=== PATIENT | male | born 1990 | race African-American/Black ===

== ENCOUNTER 2017-07-30 11:15 | Emergency (ER) | payer SELFPAY ==
--- NOTE | 2017-07-30 12:55 | ER ---
Nurse's Notes [facility] Name: Latasha Crooks Jr Age: 27 yrs Sex: Male : 1990 Arrival Date: 07/30/2017 Time: 11:19 Bed 24 Private MD: Diagnosis: Low back pain Presentation: 07/30 11:25 Presenting complaint: Patient states: middle low back pain that started today, been hj doing a lot of heavy lifting lately;. Transition of care: patient was not received from another setting of care. Onset of symptoms was July 30, 2017. Care prior to arrival: None. 11:25 Method Of Arrival: Ambulatory hj 11:25 Acuity: AMARA 4 hj Triage Assessment: 11:27 General: Appears in no apparent distress. comfortable, Behavior is calm, cooperative, hj appropriate for age. Pain: Complains of pain in lumbar area. Musculoskeletal: Circulation, motion, and sensation intact. Capillary refill. Historical: - Allergies: 11: NKDA; hj - Home Meds: 11: None [Active]; hj - PMHx: 11: None; hj - PSHx: 11: None; hj Screenin:10 Abuse screen: Denies threats or abuse. Denies injuries from another. Nutritional sg screening: No deficits noted. Tuberculosis screening: No symptoms or risk factors identified. Never had TB. Fall Risk None identified. Vital Signs: 11: BP 122 / 93; Pulse 100; Resp 18; Temp 98.1(TE); Pulse Ox 100% on R/A; Weight 79.38 kg; hj Height 5 ft. 7 in. (170.18 cm); Pain 4/10; 11:27 Body Mass Index 27.41 (79.38 kg, 170.18 cm) ED Course: 11:19 Patient arrived in ED. mr 11:26 Triage completed. hj 11:27 Arm band placed on left wrist. hj 12:35 Kenzie Szymanski FNP-C is PHCP. snw 12:35 Be Alcantara MD is Attending Physician. snw 12:42 Jairo Berry RN is Primary Nurse. sg 13:00 Patient has correct armband on for positive identification. Bed in low position. Call sg light in reach. Pulse ox on. NIBP on. 13:30 No provider procedures requiring assistance completed. Patient did not have IV access sg during this emergency room visit. Administered Medications: 13:39 Drug: Flexeril 10 mg Route: PO; iw 13:39 Drug: Motrin 400 mg Route: PO; iw Outcome: 12:54 Discharge ordered by . sven 13:30 Discharged to home ambulatory. sg 13:30 Condition: good 13:30 Discharge instructions given to patient, Instructed on discharge instructions, follow up and referral plans. medication usage, safety practices, Demonstrated understanding of instructions, follow-up care, medications, Prescriptions given X 2. 13:39 Patient left the ED. iw Signatures: Jairo Berry, RN RN sg Kenzie Szymanski, MOTION PICTURE ACTOR-C MOTION PICTURE ACTOR-Csnw Emily Harvey mr Lizzy Corona, JUAN RN Igor Ornelas RN RN hj Corrections: (The following items were deleted from the chart) 11:29 11:27 Pulse 100bpm; Resp 18bpm; Pulse Ox 100% RA; Temp 98.1F Temporal; 79.38 kg; Height hj 5 ft. 7 in.; BMI: 27.4; Pain 4/10; hj
--- NOTE | 2017-07-30 12:55 | EDPHYS ---
Physician Documentation [facility] Name: Latasha Crooks Jr Age: 27 yrs Sex: Male : 1990 Arrival Date: 07/30/2017 Time: 11:19 Bed 24 Private MD: ED Physician Be Alcantara HPI: 07/30 17:19 This 27 yrs old Black Male presents to ER via Ambulatory with complaints of Back Pain. snw 17:19 The patient presents with pain and decreased range of motion, and tenderness. The snw symptoms are located in the low back, lumbar area and left low back. Onset: The symptoms/episode began/occurred suddenly, today. The pain does not radiate. Associated signs and symptoms: The patient has no apparent associated signs or symptoms. The problem was sustained when lifting heavy object, from twisting. Severity of symptoms: At their worst the symptoms were moderate. The patient has not experienced similar symptoms in the past. The patient has not recently seen a physician. Historical: - Allergies: 11: NKDA; hj - Home Meds: : None [Active]; - PMHx: : None; - PSHx: 11: None; hj ROS: 17:19 Constitutional: Negative for fever, chills, and weight loss, Eyes: Negative for injury, snw pain, redness, and discharge, ENT: Negative for injury, pain, and discharge, Neck: Negative for injury, pain, and swelling, Cardiovascular: Negative for chest pain, palpitations, and edema, Respiratory: Negative for shortness of breath, cough, wheezing, and pleuritic chest pain, Abdomen/GI: Negative for abdominal pain, nausea, vomiting, diarrhea, and constipation, : Negative for injury, bleeding, discharge, and swelling, MS/Extremity: Negative for injury and deformity, Skin: Negative for injury, rash, and discoloration, Neuro: Negative for headache, weakness, numbness, tingling, and seizure. 17:19 Back: Positive for injury or acute deformity, decreased range of motion, pain with movement. Exam: 17:19 Constitutional: This is a well developed, well nourished patient who is awake, alert, snw and in no acute distress. Head/Face: Normocephalic, atraumatic. Eyes: Pupils equal round and reactive to light, extra-ocular motions intact. Lids and lashes normal. Conjunctiva and sclera are non-icteric and not injected. Cornea within normal limits. Periorbital areas with no swelling, redness, or edema. ENT: Nares patent. No nasal discharge, no septal abnormalities noted. Tympanic membranes are normal and external auditory canals are clear. Oropharynx with no redness, swelling, or masses, exudates, or evidence of obstruction, uvula midline. Mucous membranes moist. Neck: Trachea midline, no thyromegaly or masses palpated, and no cervical lymphadenopathy. Supple, full range of motion without nuchal rigidity, or vertebral point tenderness. No Meningismus. Chest/axilla: Normal chest wall appearance and motion. Nontender with no deformity. No lesions are appreciated. Cardiovascular: Regular rate and rhythm with a normal S1 and S2. No gallops, murmurs, or rubs. Normal PMI, no JVD. No pulse deficits. Respiratory: Lungs have equal breath sounds bilaterally, clear to auscultation and percussion. No rales, rhonchi or wheezes noted. No increased work of breathing, no retractions or nasal flaring. Abdomen/GI: Soft, non-tender, with normal bowel sounds. No distension or tympany. No guarding or rebound. No evidence of tenderness throughout. Skin: Warm, dry with normal turgor. Normal color with no rashes, no lesions, and no evidence of cellulitis. MS/ Extremity: Pulses equal, no cyanosis. Neurovascular intact. Full, normal range of motion. Neuro: Awake and alert, GCS 15, oriented to person, place, time, and situation. Cranial nerves II-XII grossly intact. Motor strength 5/5 in all extremities. Sensory grossly intact. Cerebellar exam normal. Normal gait. 17:19 Back: pain, that is moderate, ROM is painful, with rotation to the left, normal spinal alignment noted, CVA tenderness, is absent, muscle spasm, is not present. 17:21 Neuro: Exam negative for acute changes, Orientation: is normal. snw Vital Signs: 11:27 BP 122 / 93; Pulse 100; Resp 18; Temp 98.1(TE); Pulse Ox 100% on R/A; Weight 79.38 kg; hj Height 5 ft. 7 in. (170.18 cm); Pain 4/10; 11:27 Body Mass Index 27.41 (79.38 kg, 170.18 cm) MDM: 12:39 Patient medically screened. snw 17:22 Data reviewed: vital signs, nurses notes. Data interpreted: Pulse oximetry: on room air snw is 100 %. Interpretation: normal. Counseling: I had a detailed discussion with the patient and/or guardian regarding: the historical points, exam findings, and any diagnostic results supporting the discharge/admit diagnosis, the need for outpatient follow up, to return to the emergency department if symptoms worsen or persist or if there are any questions or concerns that arise at home. Special discussion: Based on the history and exam findings, there is no indication for further emergent testing or inpatient evaluation. I discussed with the patient/guardian the need to see the orthopedic surgeon for further evaluation of the symptoms. I discussed with the patient/guardian the need to see the primary care provider for further evaluation of the symptoms. Administered Medications: 13:39 Drug: Flexeril 10 mg Route: PO; 13:39 Drug: Motrin 400 mg Route: PO; Disposition: 07/30/17 12:54 Discharged to Home. Impression: Low back pain. - Condition is Stable. - Discharge Instructions: Back Pain, Adult, Hypertension, Musculoskeletal Pain, Smoking Cessation, Smoking Hazards, Back Exercises, [place]-pc-Phad, Cryotherapy, Heat Therapy. - Prescriptions for Diclofenac Sodium 75 mg Oral Tablet Sustained Release - take 1 tablet by ORAL route 2 times per day; 30 tablet. orphenadrine citrate 100 mg Oral Tablet Sustained Release - take 1 tablet by ORAL route 2 times per day As needed; 20 tablet. - Work release form, Medication Reconciliation Form, Thank You Letter, Antibiotic Education, Prescription Opioid Use form. - Follow up: Private Physician; When: 2 - 3 days; Reason: Recheck today's complaints, Continuance of care, Re-evaluation by your physician. Follow up: Emergency Department; When: As needed; Reason: Worsening of condition. Addendum: 08/02/2017 06:10 Co-signature as Attending Physician, Be Alcantara MD Available for consultation at p s1 all times. . Signatures: Kenzie Szymanski, GEOSPATIAL INFORMATION TECHNOLOGIST-C GEOSPATIAL INFORMATION TECHNOLOGIST-Csnw Cj, Lizzy, RN RN iw Johnson, Igor, RN RN hj Alcantara, Be, MD MD ps1
[2017-07-30] MEDS ORDERED: CYCLOBENZAPRINE 10 MG TAB ONE (13:22)
[2017-07-30] MEDS ORDERED: IBUPROFEN 400 MG TAB ONE (13:23)
== END 2017-07-30 13:39 | disposition home or self-care (01) ==
LOC: ER 11:15
DX: M54.5 Low back pain (principal)
CPT/HCPCS: 99283

== ENCOUNTER 2017-09-24 19:23 | Emergency (ER) | payer SELFPAY ==
[2017-09-24] MEDS ORDERED: METOCLOPRAMIDE 10 MG/2mL INJ ONE (20:28)
[2017-09-24] MEDS ORDERED: ONDANSETRON 4 MG/2 ML VIAL ONE (20:29)
[2017-09-24] MEDS ORDERED: NA CHLORIDE 0.9% 1,000 ML ONE (20:29)
--- NOTE | 2017-09-24 20:32 | RAD REPORT ---
EXAM DESCRIPTION: CT - Head Brain Wo Cont - 09/24/2017 8:10 pm CLINICAL HISTORY: Headache, photophobia COMPARISON: CT head September 2014 TECHNIQUE: Axial 5 mm thick images of the head were obtained without IV contrast. All CT scans are performed using dose optimization technique as appropriate and may include automated exposure control or mA/KV adjustment according to patient size. FINDINGS: No intracranial hemorrhage, mass, edema or shift of mid-line structures. No acute infarcti on changes seen. No abnormal extra-axial fluid collections. Ventricles are normal. Mastoid air cells and visualized portions of the paranasal sinuses are clear. No acute bony findings. No significant change from the prior study. IMPRESSION: Negative non-contrast CT head examination.
[2017-09-24 20:43] LABS: Absolute Lymphocytes (CBC) 2.8 K/uL (0.7-4.9); Absolute Monocytes 0.9 K/uL (0.1-1.3); Basophils % 0.9 % (0-1.3); Eosinophils % 1.8 % (0-4.4); Hematocrit 47.5 % (39.6-49.0); Lymphocytes % 35.7 % (15.3-44.8); MCH 30.6 pg (27.0-35.0); MCV 89.7 fL (80-100); Monocytes % 11.1 % (3.3-12.3); RBC Red Blood Cell Count 5.29 M/uL (4.33-5.43)
[2017-09-24 20:50] LABS: Glucose Level 95 mg/dL (65-120)
[2017-09-24 20:51] LABS: BUN Blood Urea Nitrogen 15 mg/dL (6-20)
[2017-09-24 20:54] LABS: Bicarbonate 30 mEq/L (21-31); Potassium 3.5 mEq/L (3.6-5.0); Sodium Level 139 mEq/L (135-145)
--- NOTE | 2017-09-24 22:18 | ER ---
Nurse's Notes [facility] Name: Latasha Crooks Jr Age: 27 yrs Sex: Male : 1990 Arrival Date: 09/24/2017 Time: 19:23 Bed 19 Private MD: Diagnosis: Headache Presentation: 09/24 19:27 Presenting complaint: Patient states: Worst headache ever for 2 days. Sensitivity to aj light and sound. Transition of care: patient was not received from another setting of care. Onset of symptoms was September 21, 2017. Risk Assessment: Do you want to hurt yourself or someone else? Patient reports no desire to harm self or others. Care prior to arrival: None. 19:27 Method Of Arrival: Ambulatory 19:27 Acuity: AMARA 3 20:07 Initial Sepsis Screen: Does the patient meet any 2 criteria? No. Patient's initial jd3 sepsis screen is negative. Does the patient have a suspected source of infection? No. Patient's initial sepsis screen is negative. Triage Assessment: 19:28 Headache History: The patient has had previous headaches and this one is different than aj previous episodes, and this one is more severe than previous episodes. General: Appears in no apparent distress. comfortable, Behavior is calm, cooperative, appropriate for age. Pain: Complains of pain in face and scalp Pain currently is 5 out of 10 on a pain scale. Pain began 2-3 days ago. Also complains of photophobia. Neuro: Level of Consciousness is awake, alert, obeys commands, Oriented to person, place, time, situation, Appropriate for age Reports headache. Respiratory: Airway is patent Respiratory effort is even, unlabored, Respiratory pattern is regular, symmetrical. Derm: Skin is intact, is healthy with good turgor, Skin is pink, warm \T\ dry. normal. Historical: - Allergies: 19:28 NKDA; aj - Home Meds: 19:28 None [Active]; aj - PMHx: 19:28 None; aj - PSHx: 19:28 None; aj - Immunization history:: Adult Immunizations up to date. - Social history:: Smoking status: Patient uses tobacco products, smokes one-half pack cigarettes per day, Patient uses alcohol, on a daily basis. - Ebola Screening: : Patient negative for fever greater than or equal to 101.5 degrees Fahrenheit, and additional compatible Ebola Virus Disease symptoms Patient denies exposure to infectious person Patient denies travel to an Ebola-affected area in the 21 days before illness onset No symptoms or risks identified at this time. Screenin:07 Abuse screen: Denies threats or abuse. Nutritional screening: No deficits noted. jd3 Tuberculosis screening: No symptoms or risk factors identified. Fall Risk Ambulatory Aid- None/Bed Rest/Nurse Assist (0 pts). Gait- Normal/Bed Rest/Wheelchair (0 pts) Mental Status- Oriented to own ability (0 pts). Total Perez Fall Scale indicates No Risk (0-24 pts). Assessment: 20:02 General: Appears uncomfortable, Behavior is cooperative, appropriate for age. Pain: jd3 Complains of pain in head Pain currently is 5 out of 10 on a pain scale. at worst was 10 out of 10 on a pain scale. Quality of pain is described as aching, pressure, sharp, Pain began 2-3 days ago. Is continuous, Alleviated by medications. Neuro: Level of Consciousness is awake, alert, obeys commands, Oriented to person, place, time, situation. Cardiovascular: Heart tones S1 S2 present Capillary refill < 3 seconds Patient's skin is warm and dry. Respiratory: Airway is patent Respiratory effort is even, unlabored, Respiratory pattern is regular, symmetrical, Breath sounds are clear bilaterally. GI: Abdomen is round Bowel sounds present X 4 quads. Abd is soft and non tender X 4 quads. Patient currently denies diarrhea, nausea, vomiting. : No signs and/or symptoms were reported regarding the genitourinary system. EENT: No signs and/or symptoms were reported regarding the EENT system. Derm: Skin is healthy with good turgor, Skin is pink, warm \T\ dry. Musculoskeletal: Circulation, motion, and sensation intact. Range of motion: intact in all extremities. 20:59 Reassessment: Patient appears in no apparent distress at this time. Patient and/or jd3 family updated on plan of care and expected duration. Pain level reassessed. Patient is alert, oriented x 3, equal unlabored respirations, skin warm/dry/pink. 21:56 Reassessment: Patient appears in no apparent distress at this time. Patient and/or jd3 family updated on plan of care and expected duration. Pain level reassessed. Patient is alert, oriented x 3, equal unlabored respirations, skin warm/dry/pink. Patient states feeling better. 22:45 Reassessment: Patient appears in no apparent distress at this time. Patient and/or jd3 family updated on plan of care and expected duration. Pain level reassessed. Patient is alert, oriented x 3, equal unlabored respirations, skin warm/dry/pink. pt reported understanding of discharge instructions, even and steady gait upon discharge. Patient states feeling better. Vital Signs: 19:28 BP 146 / 104; Pulse 100; Resp 19; Temp 98.7; Pulse Ox 99% on R/A; Weight 81.65 kg; aj Height 5 ft. 7 in. (170.18 cm); Pain 5/10; 20:58 BP 133 / 90; Pulse 86; Resp 16 S; Pulse Ox 98% on R/A; jd3 21:55 BP 127 / 82 Sitting; Pulse 81; Pulse Ox 99% on R/A; jd3 21:55 BP 122 / 75 Supine; Pulse 83; Pulse Ox 100% on R/A; jd3 21:55 BP 121 / 79 Standing; Pulse 86; Resp 16 S; Pulse Ox 98% on R/A; Pain 0/10; jd3 19:28 Body Mass Index 28.19 (81.65 kg, 170.18 cm) aj ED Course: 19:23 Patient arrived in ED. am2 19:28 Triage completed. aj 19:28 Arm band placed on left wrist. Patient placed in an exam room. aj 19:42 Myron Jackson, JUAN is Primary Nurse. jd3 19:46 Hermilo So PA is PHCP. cp 19:46 Hermilo Vargas MD is Attending Physician. cp 20:[address] vr 20:06 Patient has correct armband on for positive identification. Bed in low position. Call jd3 light in reach. Side rails up X 1. Adult w/ patient. 20:09 CT completed. Patient tolerated procedure well. Patient moved back from CT. nj 20:09 CT Head Brain wo Cont In Process Unspecified. EDMS 20:20 Inserted saline lock: 20 gauge in right antecubital area, using aseptic technique. jd3 Blood collected. 22:16 Isaias Oscar MD is Referral Physician. cp 22:42 No provider procedures requiring assistance completed. IV discontinued, intact, jd3 bleeding controlled, No redness/swelling at site. Pressure dressing applied. Administered Medications: 20:41 Drug: NS 0.9% 1000 ml Route: IV; Rate: 1 bolus; Site: right antecubital; jd3 21:48 Follow up: Response: No adverse reaction; IV Status: Completed infusion; IV Intake: jd3 1000ml 20:41 Drug: Reglan 10 mg Route: IVP; Site: right antecubital; jd3 21:48 Follow up: Response: No adverse reaction; Marked relief of symptoms jd3 20:41 Drug: Zofran 4 mg Route: IVP; Site: right antecubital; jd3 21:48 Follow up: Response: No adverse reaction jd3 Intake: 21:48 IV: 1000ml; Total: 1000ml. jd3 Outcome: 22:17 Discharge ordered by MD. cp 22:44 Discharged to home ambulatory, with family. jd3 22:44 Condition: stable 22:44 Discharge instructions given to patient, family, Instructed on discharge instructions, follow up and referral plans. medication usage, Demonstrated understanding of instructions, follow-up care, medications, Prescriptions given X 2. 22:46 Patient left the ED. jd3 Signatures: Dispatcher [employer] EDMS Natalie Hampton, RN RN Eliane Lam Corey, PA PA cp Jordan, Nathan nj Moreno, Amanda am2 Davies, Jonathon, RN RN jd3 Corrections: (The following items were deleted from the chart) 22:45 22:45 Reassessment: Patient appears in no apparent distress at this time. Patient jd3 and/or family updated on plan of care and expected duration. Pain level reassessed. Patient is alert, oriented x 3, equal unlabored respirations, skin warm/dry/pink. pt reported understanding of discharge instructions, even and steady gait upon discharge. jd3
--- NOTE | 2017-09-24 22:18 | EDPHYS ---
Physician Documentation [facility] Name: Latasha Crooks Jr Age: 27 yrs Sex: Male : 1990 Arrival Date: 09/24/2017 Time: 19:23 Bed 19 Private MD: ED Physician Hermilo Vargas HPI: 09/24 20:00 This 27 yrs old Black Male presents to ER via Ambulatory with complaints of Headache, cp Worst Ever. 20:00 The patient complains of pain to the top of head and forehead. cp 20:00 The patient describes the headache as aching, a pressure, waxing and waning. Onset: The cp symptoms/episode began/occurred 3 day(s) ago, improved today after taking OTC meds. Associated signs and symptoms: Pertinent positives: Photophobia Pertinent negatives: altered mental status, fever, neck stiffness, paresthesias, vomiting, weakness. Severity of symptoms: in the emergency department the pain has improved, mildly, a " 5" out of "10". Headache History: Denies prior headaches. Historical: - Allergies: 19:28 NKDA; aj - Home Meds: 19:28 None [Active]; aj - PMHx: 19:28 None; aj - PSHx: 19:28 None; aj - Immunization history:: Adult Immunizations up to date. - Social history:: Smoking status: Patient uses tobacco products, smokes one-half pack cigarettes per day, Patient uses alcohol, on a daily basis. - Ebola Screening: : Patient negative for fever greater than or equal to 101.5 degrees Fahrenheit, and additional compatible Ebola Virus Disease symptoms Patient denies exposure to infectious person Patient denies travel to an Ebola-affected area in the 21 days before illness onset No symptoms or risks identified at this time. ROS: 20:05 Constitutional: Negative for body aches, chills, fever, poor PO intake. cp 20:05 Eyes: Positive for photophobia, Negative for discharge, pain, redness, vision loss. cp 20:05 ENT: Negative for drainage from ear(s), ear pain, sore throat, difficulty swallowing, difficulty handling secretions. 20:05 Cardiovascular: Negative for chest pain, edema, palpitations. 20:05 Respiratory: Negative for cough, shortness of breath, wheezing. 20:05 Abdomen/GI: Negative for abdominal pain, vomiting, diarrhea, constipation, black/tarry stool. 20:05 Skin: Negative for cellulitis, rash. 20:05 Neuro: Positive for headache, Negative for altered mental status, numbness, seizure activity, weakness. 20:05 All other systems are negative. Exam: 20:12 Constitutional: The patient appears in no acute distress, alert, awake, non-toxic, well cp developed, well nourished, uncomfortable. 20:12 Head/Face: Normocephalic, atraumatic. Eyes: Pupils equal round and reactive to light, cp extra-ocular motions intact. Lids and lashes normal. Conjunctiva and sclera are non-icteric and not injected. Cornea within normal limits. Periorbital areas with no swelling, redness, or edema. ENT: Nares patent. No nasal discharge, no septal abnormalities noted. Tympanic membranes are normal and external auditory canals are clear. Oropharynx with no redness, swelling, or masses, exudates, or evidence of obstruction, uvula midline. Mucous membranes moist. Neck: Trachea midline, no thyromegaly or masses palpated, and no cervical lymphadenopathy. Supple, full range of motion without nuchal rigidity, or vertebral point tenderness. No Meningismus. Chest/axilla: Normal chest wall appearance and motion. Nontender with no deformity. No lesions are appreciated. 20:12 Cardiovascular: Rate: tachycardic, Rhythm: regular, Pulses: Pulses are 2+ in right radial artery and left radial artery. Edema: is not appreciated, JVD: is not appreciated. 20:12 Respiratory: the patient does not display signs of respiratory distress, Respirations: normal, no use of accessory muscles, no retractions, no splinting, no tachypnea, labored breathing, is not present, intercostal retractions, are absent, shallow respirations, are not present, Breath sounds: are clear throughout, no decreased breath sounds, no stridor, no wheezing. 20:12 Abdomen/GI: Inspection: abdomen appears normal, Bowel sounds: active, all quadrants, Palpation: abdomen is soft and non-tender, in all quadrants, rebound tenderness, is not appreciated, voluntary guarding, is not appreciated, involuntary guarding, is not appreciated. 20:12 Back: pain, is absent, ROM is normal. 20:12 Musculoskeletal/extremity: Exam is negative for bony tenderness, calf tenderness, deformity, edema, injury. 20:12 Skin: cellulitis, is not appreciated, no rash present. 20:12 Neuro: Orientation: to person, place \\T\\ time. Mentation: lucid, able to follow commands, Cerebellar function: is grossly normal, Motor: is normal, Sensation: is normal, Gait: is steady, at a normal pace, without difficulty. Vital Signs: 19:28 BP 146 / 104; Pulse 100; Resp 19; Temp 98.7; Pulse Ox 99% on R/A; Weight 81.65 kg; aj Height 5 ft. 7 in. (170.18 cm); Pain 5/10; 20:58 BP 133 / 90; Pulse 86; Resp 16 S; Pulse Ox 98% on R/A; jd3 21:55 BP 127 / 82 Sitting; Pulse 81; Pulse Ox 99% on R/A; jd3 21:55 BP 122 / 75 Supine; Pulse 83; Pulse Ox 100% on R/A; jd3 21:55 BP 121 / 79 Standing; Pulse 86; Resp 16 S; Pulse Ox 98% on R/A; Pain 0/10; jd3 19:28 Body Mass Index 28.19 (81.65 kg, 170.18 cm) aj MDM: 19:47 Patient medically screened. cp 20:00 Differential diagnosis: meningitis, migraine, sinusitis, subarachnoid bleed, subdural cp hematoma, tension headache. 21:08 Refusal of service: The patient/guardian displays adequate decision making capability and despite a detailed discussion of alternatives, benefits, risks, and consequences refuses: Lumbar Puncture procedure. ED course: VSS. Patient reports headache markedly improved. 22:00 Data reviewed: vital signs, nurses notes, lab test result(s), radiologic studies, CT cp scan, and as a result, I will discharge patient. 22:00 Counseling: I had a detailed discussion with the patient and/or guardian regarding: the historical points, exam findings, and any diagnostic results supporting the discharge/admit diagnosis, lab results, radiology results, to return to the emergency department if symptoms worsen or persist or if there are any questions or concerns that arise at home. 09/24 19:58 Order name: CBC with Diff; Complete Time: 20:54 cp 09/24 20:54 Interpretation: Reviewed. 09/24 19:58 Order name: BMP; Complete Time: 20:57 09/24 19:58 Order name: CT Head Brain wo Cont; Complete Time: 20:36 09/24 20:36 Interpretation: Report reviewed. 09/24 19:57 Order name: Orthostatics; Complete Time: 22:09 09/24 19:58 Order name: IV; Complete Time: 20:42 cp Administered Medications: 20:41 Drug: NS 0.9% 1000 ml Route: IV; Rate: 1 bolus; Site: right antecubital; jd3 21:48 Follow up: Response: No adverse reaction; IV Status: Completed infusion; IV Intake: jd3 1000ml 20:41 Drug: Reglan 10 mg Route: IVP; Site: right antecubital; jd3 21:48 Follow up: Response: No adverse reaction; Marked relief of symptoms jd3 20:41 Drug: Zofran 4 mg Route: IVP; Site: right antecubital; jd3 21:48 Follow up: Response: No adverse reaction jd3 Disposition: 23:00 Chart complete. 09/25 07:30 Co-signature as Attending Physician, Hermilo Vargas MD I agree with the assessment and [facility] plan of care. Disposition: 09/24/17 22:17 Discharged to Home. Impression: Headache. - Condition is Stable. - Discharge Instructions: General Headache Without Cause. - Prescriptions for Fiorinal 50- 325-40 mg Oral Capsule - take 1 capsule by ORAL route every 4 hours As needed - not to exceed 6 capsules per day; 20 capsule. promethazine 25 mg Oral Tablet - take 1 tablet by ORAL route every 6 hours As needed; 20 tablet. - Medication Reconciliation Form, Thank You Letter, Antibiotic Education, Prescription Opioid Use, Work release form form. - Follow up: Isaias Oscar MD; When: 1 - 2 days; Reason: Recheck today's complaints. - Problem is new. - Symptoms have improved. Signatures: Dispatcher [employer] Natalie Tapia RN RN aj Anderson, Corey, MD MD cha Page, Corey, PA PA cp Davies, Jonathon, RN RN jd3 Corrections: (The following items were deleted from the chart) 09/24 22:46 22:17 09/24/2017 22:17 Discharged to Home. Impression: Headache. Condition is Stable. jd3 Forms are Medication Reconciliation Form, Thank You Letter, Antibiotic Education, Prescription Opioid Use. Follow up: Isaias Oscar; When: 1 - 2 days; Reason: Recheck today's complaints. Problem is new. Symptoms have improved. cp
== END 2017-09-24 22:46 | disposition home or self-care (01) ==
LOC: ER 19:23
DX: R51 Headache (principal); F17.210 Nicotine dependence, cigarettes, uncomplicated
CPT/HCPCS: 36415; 70450; 80048; 85025; 96361; 96374; 96375; 99284; J2405; J2765; J7030

== ENCOUNTER 2017-10-27 19:54 | Emergency (ER) | payer SELFPAY ==
--- NOTE | 2017-10-27 20:20 | ER ---
Nurse's Notes [facility] Name: Latasha Crooks Jr Age: 27 yrs Sex: Male : 1990 Arrival Date: 10/27/2017 Time: 19:55 Bed 15 Private MD: Diagnosis: Low back pain Presentation: 10/27 20:04 Presenting complaint: Patient states: lower back pain X1 day after helping a friend ak1 move furniture. pt stated he took tylenol at 0700 today that helped for a while. Transition of care: patient was not received from another setting of care. Onset of symptoms was October 27, 2017. Risk Assessment: Do you want to hurt yourself or someone else? Patient reports no desire to harm self or others. Initial Sepsis Screen: Does the patient meet any 2 criteria? No. Patient's initial sepsis screen is negative. Does the patient have a suspected source of infection? No. Patient's initial sepsis screen is negative. Care prior to arrival: None. 20:04 Method Of Arrival: Ambulatory ak1 20:04 Acuity: AMARA 4 ak1 Triage Assessment: 20:05 General: Appears in no apparent distress. Behavior is calm, cooperative. Pain: ak1 Complains of pain in back. EENT: No signs and/or symptoms were reported regarding the EENT system. Neuro: No deficits noted. Cardiovascular: No deficits noted. Respiratory: No deficits noted. GI: No signs and/or symptoms were reported involving the gastrointestinal system. : No signs and/or symptoms were reported regarding the genitourinary system. Derm: No signs and/or symptoms reported regarding the dermatologic system. Musculoskeletal: Range of motion: intact in all extremities. Historical: - Allergies: 20:05 NKDA; ak1 - Home Meds: 20:05 None [Active]; ak1 - PMHx: 20:05 None; ak1 - PSHx: 20:05 None; ak1 - Immunization history:: Adult Immunizations unknown. - Social history:: Smoking status: Patient uses tobacco products, smokes one-half pack cigarettes per day, Patient uses alcohol, Patient/guardian denies using alcohol, street drugs, The patient lives with family. - Ebola Screening: : No symptoms or risks identified at this time. - Family history:: not pertinent. Screenin:05 Abuse screen: Denies threats or abuse. Denies injuries from another. Nutritional ak1 screening: No deficits noted. Tuberculosis screening: No symptoms or risk factors identified. Fall Risk None identified. Assessment: 20:10 General: Appears in no apparent distress. comfortable, Behavior is calm, cooperative, aa1 appropriate for age. Pain: Complains of pain in back Pain began 2-3 days ago. Neuro: Level of Consciousness is awake, alert, obeys commands, Oriented to person, place, time, situation, Moves all extremities. Full function Gait is steady. Respiratory: Airway is patent Respiratory effort is even, unlabored, Respiratory pattern is regular, symmetrical. GI: No signs and/or symptoms were reported involving the gastrointestinal system. : No signs and/or symptoms were reported regarding the genitourinary system. EENT: No signs and/or symptoms were reported regarding the EENT system. Derm: Skin is intact, is healthy with good turgor, Skin is pink, warm \T\ dry. Musculoskeletal: Circulation, motion, and sensation intact. Capillary refill < 3 seconds, Range of motion: intact in all extremities. 20:32 Reassessment: Patient appears in no apparent distress at this time. Patient is alert, aa1 oriented x 3, equal unlabored respirations, skin warm/dry/pink. Discussed d/c \T\ f/u instructions with pt; denies questions or concerns at this time. Vital Signs: 20:00 BP 141 / 77; Pulse 118; Resp 16; Temp 99.5(TE); Pulse Ox 98% on R/A; Weight 73.48 kg ak1 (R); Height 5 ft. 6 in. (167.64 cm) (R); Pain 5/10; 20:32 BP 139 / 79; Pulse 99; Resp 16; Pulse Ox 97% on R/A; aa1 20:00 Body Mass Index 26.15 (73.48 kg, 167.64 cm) ak1 ED Course: 19:55 Patient arrived in ED. am2 20:01 Seda Ramirez MD is Attending Physician. ma2 20:04 Triage completed. ak1 20:05 Arm band placed on Patient placed in an exam room, on a stretcher, Patient notified of ak1 wait time. 20:05 Patient has correct armband on for positive identification. Call light in reach. Side ak1 rails up X 1. Adult w/ patient. 20:19 Becky Dunn, RN is Primary Nurse. aa1 20:32 No provider procedures requiring assistance completed. Patient did not have IV access aa1 during this emergency room visit. Administered Medications: 20:31 Drug: Motrin 400 mg Route: PO; aa1 20:32 Follow up: Response: Medication administered at discharge. aa1 20:31 Drug: Flexeril 10 mg Route: PO; aa1 20:32 Follow up: Response: Medication administered at discharge. aa1 Outcome: 20:20 Discharge ordered by . ma2 20:32 Discharged to home ambulatory, with significant other. aa1 20:32 Condition: good 20:32 Discharge instructions given to patient, significant other, Instructed on discharge instructions, follow up and referral plans. medication usage, Demonstrated understanding of instructions, follow-up care, medications, Prescriptions given X 2. 20:38 Patient left the ED. aa1 Signatures: Becky Dunn, JUAN MARTINEZ aa1 Moon Johnson RN RN ak1 Natalie Cool am2 Seda Ramirez MD MD ms2
--- NOTE | 2017-10-27 20:21 | EDPHYS ---
Physician Documentation [facility] Name: Latasha Crooks Jr Age: 27 yrs Sex: Male : 1990 Arrival Date: 10/27/2017 Time: 19:55 Bed 15 Private MD: ED Physician Seda Ramirez HPI: 10/27 20:17 This 27 yrs old Black Male presents to ER via Ambulatory with complaints of Back Pain. ma2 20:17 The patient presents with pain that is chronic, with no known mechanism of injury. The ma2 symptoms are located in the low back. Onset: The symptoms/episode began/occurred gradually, 1 week(s) ago. The pain radiates. Associated signs and symptoms: Pertinent negatives: abdominal pain, chest pain, constipation, dysuria, fever, headache, hematuria, incontinence, nausea, numbness, tingling, urinary retention, vomiting, weakness. The problem was sustained when lifting boxes. Severity of symptoms: At their worst the symptoms were moderate, deline IM shot. The patient has experienced similar episodes in the past. Historical: - Allergies: 20:05 NKDA; ak1 - Home Meds: 20:05 None [Active]; ak1 - PMHx: 20:05 None; ak1 - PSHx: 20:05 None; ak1 - Immunization history:: Adult Immunizations unknown. - Social history:: Smoking status: Patient uses tobacco products, smokes one-half pack cigarettes per day, Patient uses alcohol, Patient/guardian denies using alcohol, street drugs, The patient lives with family. - Ebola Screening: : No symptoms or risks identified at this time. - Family history:: not pertinent. ROS: 20:17 Constitutional: Negative for fever, chills, and weight loss, ENT: Negative for injury, ma2 pain, and discharge. 20:17 MS/extremity: Positive for back pain. 20:17 All other systems are negative. Exam: 20:17 Constitutional: This is a well developed, well nourished patient who is awake, alert, ma2 and in no acute distress. Head/Face: Normocephalic, atraumatic. Cardiovascular: Regular rate and rhythm with a normal S1 and S2. No gallops, murmurs, or rubs. Normal PMI, no JVD. No pulse deficits. Respiratory: Lungs have equal breath sounds bilaterally, clear to auscultation and percussion. No rales, rhonchi or wheezes noted. No increased work of breathing, no retractions or nasal flaring. Abdomen/GI: Soft, non-tender, with normal bowel sounds. No distension or tympany. No guarding or rebound. No evidence of tenderness throughout. Back: No spinal tenderness. No costovertebral tenderness. Full range of motion. Vital Signs: 20:00 BP 141 / 77; Pulse 118; Resp 16; Temp 99.5(TE); Pulse Ox 98% on R/A; Weight 73.48 kg ak1 (R); Height 5 ft. 6 in. (167.64 cm) (R); Pain 5/10; 20:32 BP 139 / 79; Pulse 99; Resp 16; Pulse Ox 97% on R/A; aa1 20:00 Body Mass Index 26.15 (73.48 kg, 167.64 cm) [facility] MDM: 20:01 Patient medically screened. ma2 20:17 Differential diagnosis: Ligament Injury Obesity Scoliosis sprain. Data reviewed: vital ma2 signs, nurses notes. Response to treatment: the patient's symptoms have markedly improved after treatment. Administered Medications: 20:31 Drug: Motrin 400 mg Route: PO; aa1 20:32 Follow up: Response: Medication administered at discharge. aa1 20:31 Drug: Flexeril 10 mg Route: PO; aa1 20:32 Follow up: Response: Medication administered at discharge. [facility] Disposition: 10/27/17 20:20 Discharged to Home. Impression: Low back pain. - Condition is Stable. - Discharge Instructions: Back Pain, Adult. - Prescriptions for Tylenol- Codeine #3 300-30 mg Oral Tablet - take 2 tablet by ORAL route every 6 hours As needed; 30 tablet. Cyclobenzaprine 10 mg Oral Tablet - take 1 tablet by ORAL route every 8 hours As needed; 30 tablet. - Work release form, Medication Reconciliation Form, Thank You Letter, Antibiotic Education, Prescription Opioid Use form. - Follow up: Private Physician; When: 1 - 2 days; Reason: If symptoms return. - Problem is chronic. - Symptoms have worsened. Signatures: Becky Dunn RN RN aa1 Moon Johnson RN RN ak1 Seda Ramirez MD MD ar2 Corrections: (The following items were deleted from the chart) 20:38 20:20 10/27/2017 20:20 Discharged to Home. Impression: Low back pain. Condition is aa1 Stable. Forms are Medication Reconciliation Form, Thank You Letter, Antibiotic Education, Prescription Opioid Use. Follow up: Private Physician; When: 1 - 2 days; Reason: If symptoms return. Problem is chronic. Symptoms have worsened. ma2
[2017-10-27] MEDS ORDERED: IBUPROFEN 400 MG TAB ONE (20:27)
[2017-10-27] MEDS ORDERED: CYCLOBENZAPRINE 10 MG TAB ONE (20:27)
== END 2017-10-27 20:38 | disposition home or self-care (01) ==
LOC: ER 19:54
DX: M54.5 Low back pain (principal); F17.210 Nicotine dependence, cigarettes, uncomplicated
CPT/HCPCS: 99283

== ENCOUNTER 2017-10-28 08:31 | Emergency (ER) | payer SELFPAY ==
--- NOTE | 2017-10-28 08:59 | ER ---
Nurse's Notes [facility] Name: Latasha Crooks Jr Age: 27 yrs Sex: Male : 1990 Arrival Date: 10/28/2017 Time: 08:35 Bed 14 Private MD: Diagnosis: Low back pain Presentation: 10/28 08:35 Presenting complaint: Patient states: i was lifting things last night and after that i hj felt like my lower back is hurting; was here last night for the same problem; denies numbness and tingling on bilateral legs;. Transition of care: patient was not received from another setting of care. Onset of symptoms was October 28, 2017. Risk Assessment: Do you want to hurt yourself or someone else? Patient reports no desire to harm self or others. Initial Sepsis Screen: Does the patient meet any 2 criteria? No. Patient's initial sepsis screen is negative. Does the patient have a suspected source of infection? No. Patient's initial sepsis screen is negative. Care prior to arrival: None. 08:35 Method Of Arrival: Ambulatory 08:35 Acuity: AMARA 4 hj Triage Assessment: 08:37 General: Appears in no apparent distress. uncomfortable, Behavior is calm, cooperative, hj appropriate for age. Pain: Complains of pain in left low back and right low back Pain currently is 7 out of 10 on a pain scale. Musculoskeletal: Circulation, motion, and sensation intact. Capillary refill < 3 seconds. Historical: - Allergies: 08:37 NKDA; hj - Home Meds: 08:37 None [Active]; hj - PMHx: 08:37 None; hj - PSHx: 08:37 None; hj - Immunization history:: Adult Immunizations up to date. - Social history:: Smoking status: Patient uses tobacco products, smokes one-half pack cigarettes per day, Patient/guardian denies using alcohol. - Ebola Screening: : Patient negative for fever greater than or equal to 101.5 degrees Fahrenheit, and additional compatible Ebola Virus Disease symptoms Patient denies exposure to infectious person Patient denies travel to an Ebola-affected area in the 21 days before illness onset. Screenin:38 Abuse screen: Denies threats or abuse. Denies injuries from another. Nutritional hj screening: No deficits noted. Tuberculosis screening: No symptoms or risk factors identified. Fall Risk None identified. Assessment: 08:46 Reassessment: pt refused to get into gown and refused to give urine sample at this tw2 time, providers notified. 09:05 General: Appears in no apparent distress. Behavior is calm, cooperative, appropriate tw2 for age. Pain: Complains of pain in right low back and left low back. Neuro: Level of Consciousness is awake, alert, obeys commands, Oriented to person, place, time, situation. Cardiovascular: Denies chest pain, shortness of breath, Patient's skin is warm and dry. Respiratory: Airway is patent Respiratory effort is even, unlabored, Respiratory pattern is regular, symmetrical. GI: No signs and/or symptoms were reported involving the gastrointestinal system. : EENT: No signs and/or symptoms were reported regarding the EENT system. EENT:. Derm: No signs and/or symptoms reported regarding the dermatologic system. Skin is intact, is healthy with good turgor, Skin temperature is warm. Musculoskeletal: Range of motion: intact in all extremities, Reports pain in right low back and left low back. 09:09 Reassessment: Patient appears in no apparent distress at this time. Patient and/or tw2 family updated on plan of care and expected duration. Pain level reassessed. Patient is alert, oriented x 3, equal unlabored respirations, skin warm/dry/pink. Vital Signs: 08:38 BP 128 / 84; Pulse 91; Resp 18; Temp 98.3(O); Pulse Ox 99% on R/A; Weight 68.95 kg; hj Height 5 ft. 7 in. (170.18 cm); Pain 7/10; 08:38 Body Mass Index 23.81 (68.95 kg, 170.18 cm) ED Course: 08:35 Patient arrived in ED. hj 08:37 Triage completed. hj 08:38 Arm band placed on left wrist. hj 08:38 Patient has correct armband on for positive identification. Bed in low position. Call light in reach. Side rails up X 1. Adult w/ patient. 08:41 Melanie Madrid, JUAN is Primary Nurse. tw2 08:50 Ken[facility]zymanski [facility]C [facility] snw 08:50 Carter Nelson MD is Attending Physician. snw 09:09 No provider procedures requiring assistance completed. Patient did not have IV access tw2 during this emergency room visit. Administered Medications: 09:01 Drug: TORadol 60 mg Route: IM; Site: left deltoid; tw2 09:08 Follow up: Response: No adverse reaction; Pain is decreased tw2 Outcome: 08:58 Discharge ordered by MD. machuca 09:09 Discharged to home ambulatory, with significant other. tw2 09:09 Condition: stable 09:09 Discharge instructions given to patient, significant other, Instructed on discharge instructions, follow up and referral plans. Demonstrated understanding of instructions, follow-up care. 09:09 Patient left the ED. tw2 Signatures: Kenzie Szymanski, REGULATED PROGRAM MANAGER-C REGULATED PROGRAM MANAGER-Csnw Igor Ornelas RN RN Melanie Madrid RN RN tw2 Corrections: (The following items were deleted from the chart) 08:40 08:38 Pulse 91bpm; Resp 18bpm; Pulse Ox 99% RA; Temp 98.3F Oral; 68.95 kg; Height 5 ft. hj 7 in.; BMI: 23.8; Pain 7/10; hj
--- NOTE | 2017-10-28 09:00 | EDPHYS ---
Physician Documentation [facility] Name: Latasha Crooks Jr Age: 27 yrs Sex: Male : 1990 Arrival Date: 10/28/2017 Time: 08:35 Bed 14 Private MD: ED Physician Carter Nelson HPI: 10/28 09:01 This 27 yrs old Black Male presents to ER via Ambulatory with complaints of Back Pain. snw 09:01 The patient presents with pain that is acute. The symptoms are located in the low back. snw Onset: The symptoms/episode began/occurred 3 day(s) ago, and became persistent. The pain does not radiate. Associated signs and symptoms: The patient has no apparent associated signs or symptoms. The problem was sustained when lifting heavy object. Modifying factors: The patient symptoms are alleviated by nothing. Severity of symptoms: At their worst the symptoms were moderate, severe. The patient has experienced similar episodes in the past. The patient has been recently seen at the [facility] Emergency Department, yesterday, for similar complaints was given a prescription for pain medications. Historical: - Allergies: 08:37 NKDA; hj - Home Meds: 08:37 None [Active]; hj - PMHx: 08:37 None; hj - PSHx: 08:37 None; hj - Immunization history:: Adult Immunizations up to date. - Social history:: Smoking status: Patient uses tobacco products, smokes one-half pack cigarettes per day, Patient/guardian denies using alcohol. - Ebola Screening: : Patient negative for fever greater than or equal to 101.5 degrees Fahrenheit, and additional compatible Ebola Virus Disease symptoms Patient denies exposure to infectious person Patient denies travel to an Ebola-affected area in the 21 days before illness onset. ROS: 09:00 Constitutional: Negative for fever, chills, and weight loss, Eyes: Negative for injury, snw pain, redness, and discharge, ENT: Negative for injury, pain, and discharge, Neck: Negative for injury, pain, and swelling, Cardiovascular: Negative for chest pain, palpitations, and edema, Respiratory: Negative for shortness of breath, cough, wheezing, and pleuritic chest pain, Abdomen/GI: Negative for abdominal pain, nausea, vomiting, diarrhea, and constipation, : Negative for injury, bleeding, discharge, and swelling, MS/Extremity: Negative for injury and deformity, Skin: Negative for injury, rash, and discoloration, Neuro: Negative for headache, weakness, numbness, tingling, and seizure. 09:00 Back: Positive for decreased range of motion, pain at rest, pain with movement, of the right low back. Exam: 08:59 Constitutional: This is a well developed, well nourished patient who is awake, alert, snw and in no acute distress. Head/Face: Normocephalic, atraumatic. Eyes: Pupils equal round and reactive to light, extra-ocular motions intact. Lids and lashes normal. Conjunctiva and sclera are non-icteric and not injected. Cornea within normal limits. Periorbital areas with no swelling, redness, or edema. ENT: Nares patent. No nasal discharge, no septal abnormalities noted. Tympanic membranes are normal and external auditory canals are clear. Oropharynx with no redness, swelling, or masses, exudates, or evidence of obstruction, uvula midline. Mucous membranes moist. Neck: Trachea midline, no thyromegaly or masses palpated, and no cervical lymphadenopathy. Supple, full range of motion without nuchal rigidity, or vertebral point tenderness. No Meningismus. Chest/axilla: Normal chest wall appearance and motion. Nontender with no deformity. No lesions are appreciated. Cardiovascular: Regular rate and rhythm with a normal S1 and S2. No gallops, murmurs, or rubs. Normal PMI, no JVD. No pulse deficits. Respiratory: Lungs have equal breath sounds bilaterally, clear to auscultation and percussion. No rales, rhonchi or wheezes noted. No increased work of breathing, no retractions or nasal flaring. Abdomen/GI: Soft, non-tender, with normal bowel sounds. No distension or tympany. No guarding or rebound. No evidence of tenderness throughout. Skin: Warm, dry with normal turgor. Normal color with no rashes, no lesions, and no evidence of cellulitis. MS/ Extremity: Pulses equal, no cyanosis. Neurovascular intact. Full, normal range of motion. Neuro: Awake and alert, GCS 15, oriented to person, place, time, and situation. Cranial nerves II-XII grossly intact. Motor strength 5/5 in all extremities. Sensory grossly intact. Cerebellar exam normal. Normal gait. 08:59 Back: pain, that is moderate, ROM is normal, normal spinal alignment noted, CVA tenderness, is absent. Vital Signs: 08:38 BP 128 / 84; Pulse 91; Resp 18; Temp 98.3(O); Pulse Ox 99% on R/A; Weight 68.95 kg; hj Height 5 ft. 7 in. (170.18 cm); Pain 7/10; 08:38 Body Mass Index 23.81 (68.95 kg, 170.18 cm) hj MDM: 08:51 Patient medically screened. snw 09:00 Data reviewed: vital signs, nurses notes. Data interpreted: Pulse oximetry: on room air snw is 99 %. Interpretation: normal. Counseling: I had a detailed discussion with the patient and/or guardian regarding: the historical points, exam findings, and any diagnostic results supporting the discharge/admit diagnosis, the presence of at least one elevated blood pressure reading (>120/80) during this emergency department visit, the need for outpatient follow up, for definitive care, to return to the emergency department if symptoms worsen or persist or if there are any questions or concerns that arise at home. Special discussion: I have referred the patient to see his PCP for further evaluation of high blood pressure. Based on the history and exam findings, there is no indication for further emergent testing or inpatient evaluation. I discussed with the patient/guardian the need to see the primary care provider for further evaluation of the symptoms. Administered Medications: 09:01 Drug: TORadol 60 mg Route: IM; Site: left deltoid; tw2 09:08 Follow up: Response: No adverse reaction; Pain is decreased tw2 Disposition: 10/28/17 08:58 Discharged to Home. Impression: Low back pain. - Condition is Stable. - Discharge Instructions: Back Pain, Adult, Hypertension, Musculoskeletal Pain, Cryotherapy, Heat Therapy. - Medication Reconciliation Form, Thank You Letter, Antibiotic Education, Prescription Opioid Use, Work release form form. - Follow up: Private Physician; When: 2 - 3 days; Reason: Recheck today's complaints, Continuance of care, Re-evaluation by your physician. Follow up: Emergency Department; When: As needed; Reason: Worsening of condition. Addendum: 10/30/2017 06:18 Co-signature as Attending Physician, Carter chin s Signatures: Kenzie Szymanski, ACADEMIC INTERN-C ACADEMIC INTERN-Csnw Igor Ornelas, RN RN hj Melanie Madrid RN RN tw2 Carter Nelson MD MD Corrections: (The following items were deleted from the chart) 10/28 09:09 08:58 10/28/2017 08:58 Discharged to Home. Impression: Low back pain. Condition is tw2 Stable. Forms are Work release form, Medication Reconciliation Form, Thank You Letter, Antibiotic Education, Prescription Opioid Use. Follow up: Private Physician; When: 2 - 3 days; Reason: Recheck today's complaints, Continuance of care, Re-evaluation by your physician. Follow up: Emergency Department; When: As needed; Reason: Worsening of condition. snw
[2017-10-28] MEDS ORDERED: KETOROLAC 30 MG/ML INJ ONE (09:01)
== END 2017-10-28 09:09 | disposition home or self-care (01) ==
LOC: ER 08:31
DX: M54.5 Low back pain (principal); F17.210 Nicotine dependence, cigarettes, uncomplicated
CPT/HCPCS: 96372; 99283

== ENCOUNTER 2022-04-13 19:16 | Emergency (ER) | payer SELFPAY ==
--- OUTSIDE RECORDS SUMMARY | 2022-04-13 19:19 | XMS REPORT | Continuity of Care Document ---
:1990 Author Organization [facility] t Address [address] [place] [address] Care Team Providers Name Role Phone Pcp, Patient Does Not Have A Primary Care Physician +[id number] Gary Amaya Attending Clinician BENJAMIN RODRIGUEZ Attending Clinician Unavailable Benjamin Rodriguez MD Attending Clinician BENJAMIN RODRIGUEZ Admitting Clinician Unavailable Problems This patient has no known problems. Allergies, Adverse Reactions, Alerts Allergy Allergy Status Severity Reaction(s) Onset Inactive Treating Comm ents Source Name Type Date Date Clinician NO KNOWN Drug Active Univers ALLERGIE Class [facility] Social History Social Habit Start Date Stop Date Quantity Comments Source Exposure to 2021-11-10 2021-11-20 Not sure [facility] SARS-CoV-2 (event) 00:00:00 11:34:00 Medica l Branch Sex Assigned At [birth year] [facility] 00:00:00 00:00:00 Medical Branch Smoking Status Start Date Stop Date Source Tobacco smoking consumption [facility] Branch Medications This patient has no known medications. Vital Signs Vital Name Observation Time Observation Value Comments Source Systolic blood 2021-11-20 19:00:00 150 mm[Hg] Univer sity of pressure [facility] Diastolic blood 2021-11-20 19:00:00 100 mm[facility]Hg[facility] 2021-11-20 19:00:00 89 /min [facility] Respiratory rate 2021-11-20 19:00:00 18 /min [facility] Oxygen saturation in 2021-11-20 19:00:00 100 /min University Arterial blood by [facility] Pulse oximetry Branch Body temperature 2021-11-20 16:35:00 36.72 Nancy [facility] Body weight 2021-11-20 16:35:00 88.451 kg [facility] Procedures Procedure Date / Time Performing Clinician Source Performed XR CHEST 1 VW 2021-11-20 17:33:12 Benjamin Rodriguez [facility] TROPONIN I 2021-11-20 17:24:00 Benjamin Rodriguez [facility] FREE T4 2021-11-20 17:24:00 Benjamin Rodriguez [facility] THYROID STIMULATING 2021-11-20 17:24:00 Benjamin Rodriguez [facility] HORMONE [facility] COMP. METABOLIC PANEL 2021-11-20 17:24:00 Benjamin Rodriguez [facility] ([id number]) [facility] CBC WITH DIFF 2021-11-20 17:24:00 Benjamin Rodriguez [facility] URINALYSIS 2021-11-20 17:24:00 Benjamin Rodriguez [facility] N-TERMINAL PRO-BNP 2021-11-20 17:24:00 Benjamin Rodriguez [facility] URINE DRUG (IMMUNOASSAY) 2021-11-20 17:24:00 Benjamin Rodriguez [facility] DRUG Medical [facility] SCREEN W/O REFLEX NOTICE OF PRIVACY 2021-11-20 16:22:18 Doctor Unassigned, No [facility] PRACTICES Name Medical Branch CONSENT/REFUSAL FOR 2021-11-20 16:21:47 [facility] Name [facility] Encounters Start End Encounter Admission Attending Care Care Encounter Source Date/Time Date/Time Type Type Clinicians Facility Department ID 2022-01-03 2022-01-03 Letter XAVIER Amaya [id number] Univers 00:00:00 00:00:00 (Out) Gary ESCOBEDO [id number] y [facility] [id number] Michel as [id number] [facility] 043 Branch 2021-11-20 2021-11-20 Emergency X JENNIFER [facility] ERT [id number] Univers 11:35:00 14:22:00 BENJAMIN itkanu [facility] 2021-11-20 2021-11-20 [facility] [id number] Univers 11:35:00 14:22:00 Benjamin CRAMER [id number] i ty heather [facility] [id number] [facility] [id number] [address] Results Test Description Test Time Test Comments Results Result Comments Source THYROID STIMULATING HORMONE 2021-11-20 18:49:18 Test Item Value Reference Range Interpretation Comme nts TSH (test code = 0345895252) See_Comment [Automated message] The system which generated this result transmitted ref erence range: 0.45 - 4.70 mIU/L. T he reference range was not used to interpret this result as palma l/abnormal. Lab Interpretation (test code = Normal 52729-3) [id number]:35[facility]56 Test Item Value Reference Range Interpretation Comments FREE T4 (test code = See_Comment [Autom ated message] [id number]) The system [employer] generated this result transmitted ref erence range: 0.78 - 2 .20 ng/dL:. The ref erence range was not u sed to interpret this result as normal/abnor mal. Lab Interpretation (test Normal code = 29077-0) [facility] [id number] 18:30:54 Test Item Value Reference Interpretation Comments Range TROPONIN I (test 0.019 ng/mL See_Comment [Automated code = 7261170362) message] The system which generated this result transmitted reference range : <=0.034. The reference range was not used to interpret this result as normal/abnormal . CYNTHIA (test code = Reference (Normal) CYNTHIA) Range (defined by the 99th percentile reference limit): <= 0.034 ng/mL Note: Cardiac troponin begins to rise 3-4 hours after the onset of ischemia. Repeat in 4-6 hours if the sample was drawn within 3-4 hours of the onset of the symptom and found normal. Diagnosis of myocardial injury is made with acute changes in cTn concentrations with at least one serial sample above the 99th percentile upper reference limit (URL), taken together with the patient's clinical presentation. Biotin has been reported to cause a negative bias, interpret results relative to patient's use of biotin. Lab Interpretation Normal (test code = 73485-6) [facility] [id number] 18:27:55 Test Item Value Reference Range Interpretation Comments NT-proBNP (test code 64 pg/mL See_Comment [Autom ated = [id number]) message] The system which generated this result transmitted reference range : <=125. The reference range was not used to interpret this result as normal/abnormal . CYNTHIA (test code = CYNTHIA) Biotin has been reported to cause a negative bias, interpret results relative to patient's use of biotin. Lab Interpretation Normal (test code = 43921-8) [facility] ([id number])2021-11-20 18:17:57 Test Item Value Reference Range Interpretation Comments NA (test code = 141 mmol/L 135-145 0440600406) K (test code = 4.2 mmol/L 3.5-5 4151088485) CL (test code = 105 mmol/L 98-108 9773664040) CO2 TOTAL (test code = 26 mmol/L 23-31 0470688677) AGAP (test code = 2-16 3170159887) BUN (test code = 7 mg/dL 7-23 1724030617) GLUCOSE (test code = 69 mg/dL 70-110 L 9747751641) CREATININE (test code = 1.07 mg/dL 0.6-1.25 5796494643) TOTAL BILI (test code = 0.5 mg/dL 0.1-1.3 2744328458) CALCIUM (test code = 9.3 mg/dL 8.6-10.6 5970171252) T PROTEIN (test code = 7.3 g/dL 6.3-8.2 0464963955) ALBUMIN (test code = 4.7 g/dL 3.5-5 1224787940) ALK PHOS (test code = 69 U/L 34-122 3010992930) ALTv (test code = 22 U/L 5-50 1742-6) AST(SGOT) (test code = 25 U/L 13-40 2365985176) eGFR (test code = mL/min/1.73m2 2293658364) CYNTHIA (test code = CYNTHIA) Association of Glomerular Filtration Rate (GFR) and Staging of Kidney Disease* + --+ --+ ------+| GFR (mL/min/1.73 m2) ?| With Kidney Damage ?| ?Without Kidney Damage+ --------+ --------+ +| ?>90 ?| ?Stage one ?| ? Normal ?+ ---+ ---+ -------+| ?60-89 ?| ?Stage two ?| ? Decreased GFR ? + --+ --+ ------+| ?30-59 ?| ?Stage three ?| ? Stage three ? + --+ --+ ------+| ?15-29 ?| ?Stage four ? | ? Stage four ?+ ---+ ---+ -------+| ?<15 (or dialysis) ? ?| ?Stage five ? | ? Stage five ?+ ---+ ---+ -------+ *Each stage assumes the associated GFR level has been in effect for at least three months. ?Stages 1 to 5, with or without kidney disease, indicate chronic kidney disease. Notes: Determination of stages one and two (with eGFR >59mL/min/1.73 m2) requires estimation of kidney damage for at least three months as defined by structural or functional abnormalities of the kidney, manifested by either:Pathological abnormalities or Markers of kidney damage (including abnormalities in the composition of the blood or urine or abnormalities in imaging tests). Lab Interpretation Abnormal (test code = 43492-8) [facility] WITH [id number] 18:11:54 Test Item Value Reference Range Interpretation Comments WBC (test code = See_Comment [Automated 8494-2) message] The sy stem which generated this result transmitted reference range : 4.20 - 10.70 10*3/?L. The reference range was not used to interpret this result as normal/abnormal . RBC (test code = See_Comment [Automated 619-1) message] The sy stem which generated this result transmitted reference range : 4.26 - 5.52 10*6/?L. The reference range was not used to interpret this result as normal/abnormal . HGB (test code = 15.3 g/dL 12.2-16.4 718-7) HCT (test code = 45.1 % 38.4-49.3 4544-3) MCV (test code = 88.8 fL 81.7-95.6 787-2) MCH (test code = 30.1 pg 26.1-32.7 785-6) MCHC (test code = 33.9 g/dL 31.2-35 786-4) RDW-SD (test code = 44.1 fL 38.5-51.6 59559-3) RDW-CV (test code = 13.4 % 12.1-15.4 788-0) PLT (test code = See_Comment [Automated 777-3) message] The sy stem which generated this result transmitted reference range : 150 - 328 10*3/ ?L. The reference r aldo was not used to interpret this result as normal/abnormal . MPV (test code = 10.1 fL 9.8-13 49860-5) NRBC/100 WBC (test See_Comment [Automat ed code = 1929958819) message] The system which generated this result transmitted reference range : 0.0 - 10.0 /100 WBCs. The refer ence range was not u sed to interpret th is result as normal/abnormal . NRBC x10^3 (test code See_Comment [Auto mated = 3994064334) message] The s ystem which generated this result transmitted reference range : 10*3/?L. The reference range was not used to interpret this result as normal/abnormal . GRAN MAT (NEUT) % 48.4 % (test code = 770-8) IMM GRAN % (test code 0.50 % = 4553821095) LYMPH % (test code = 35.6 % 736-9) MONO % (test code = 14.1 % 5905-5) EOS % (test code = 0.9 % 713-8) BASO % (test code = 0.5 % 706-2) GRAN MAT x10^3(ANC) 4.11 10*3/uL 1.99-6.95 (test code = 0894803729) IMM GRAN x10^3 (test 0.04 10*3/uL 0-0.06 code = 5183820123) LYMPH x10^3 (test code 3.03 10*3/uL 1.09-3.23 = 731-0) MONO x10^3 (test code 1.20 10*3/uL 0.36-1.02 H = 742-7) EOS x10^3 (test code = 0.08 10*3/uL 0.06-0.53 711-2) BASO x10^3 (test code 0.04 10*3/uL 0.01-0.09 = 704-7) Lab Interpretation Abnormal (test code = 62665-3) [facility]"
[2022-04-13 20:32] LABS: SARS-COV-2 RT PCR NEGATIVE (NEGATIVE)
[2022-04-13] MEDS ORDERED: NA CHLORIDE 0.9% 1,000 ML ONE (20:38)
--- NOTE | 2022-04-13 21:22 | ER ---
Nurse's Notes [facility] Name: Latasha Crooks Jr Age: 31 yrs Sex: Male : 1990 Arrival Date: 04/13/2022 Time: 19:20 Bed 12 Private MD: Diagnosis: Nausea with vomiting, unspecified;Diarrhea, unspecified;Volume depletion, unspecified Presentation: 04/13 19:33 Chief complaint: Patient states: "I have to have a note saying that I can return back tw5 to work since I had to call in from throwing up. I feel way better than I felt earlier.". Coronavirus screen: Vaccine status: Patient reports being unvaccinated. Ebola Screen: Patient negative for fever greater than or equal to 101.5 degrees Fahrenheit, and additional compatible Ebola Virus Disease symptoms Patient denies exposure to infectious person. Patient denies travel to an Ebola-affected area in the 21 days before illness onset. Initial Sepsis Screen: Does the patient meet any 2 criteria? No. Patient's initial sepsis screen is negative. Does the patient have a suspected source of infection? No. Patient's initial sepsis screen is negative. Risk Assessment: Do you want to hurt yourself or someone else? Patient reports no desire to harm self or others. Onset of symptoms was April 12, 2022. 19:33 Acuity: AMARA 5 tw5 19:33 Method Of Arrival: Ambulatory tw5 Triage Assessment: 19:36 General: Appears in no apparent distress. Behavior is calm, cooperative, appropriate tw5 for age. Pain: Denies pain. GI: Reports nausea, vomiting. Historical: - Allergies: 19:36 NKDA; tw5 - Home Meds: 19:36 None [Active]; tw5 - PMHx: 19:36 None; tw5 - PSHx: 19:36 None; tw5 - Immunization history:: Flu vaccine is not up to date. - Social history:: Smoking status: Patient reports the use of cigarette tobacco products, smokes one-half pack cigarettes per day. Screenin:36 [facility] ED Fall Risk Assessment (Adult) History of falling in the last 3 months, tw5 including since admission. Abuse screen: Denies threats or abuse. Denies injuries from another. Nutritional screening: No deficits noted. Tuberculosis screening: No symptoms or risk factors identified. Assessment: 20:35 General: Appears in no apparent distress. Behavior is calm, cooperative, appropriate tw5 for age. Respiratory: No deficits noted. GI: Abdomen is non-distended, Vital Signs: 19:33 Pulse 110; Resp 18; Temp 99.2; Pulse Ox 100% ; Weight 83.91 kg; Height 5 ft. 7 in. tw5 (170.18 cm); Pain 0/10; 19:42 BP 137 / 82; Pulse 115; zm 20:35 BP 131 / 67; Pulse 100; Resp 18; Pulse Ox 100% on R/A; tw5 21:36 Pulse 97; Resp 18; Pulse Ox 100% on R/A; tw5 19:33 Body Mass Index 28.97 (83.91 kg, 170.18 cm) tw5 ED Course: 19:20 Patient arrived in ED. jj6 19:24 [facility] Ham F[facility]-C [facility]. snw 19:24 Hermilo Vargas MD is Attending Physician. snw 19:36 Triage completed. tw5 19:36 Arm band placed on Patient placed in an exam room. tw5 19:42 COVID-19/FLU A+B/RSV Sent. zm 20:34 Shiloh Jules is Primary Nurse. tw5 20:36 Patient has correct armband on for positive identification. Bed in low position. Call tw5 light in reach. Side rails up X 1. Adult w/ patient. Pulse ox on. NIBP on. Door closed. Noise minimized. Moved to private room. Warm blanket given. Verbal reassurance given. 21:36 No provider procedures requiring assistance completed. Patient did not have IV access tw5 during this emergency room visit. Administered Medications: 20:37 Not Given (Patient Refused): NS 0.9% 1000 ml IV at 1 bolus Per protocol; 1000 mL bolus tw5 Medication: 21:36 VIS not applicable for this client. tw5 Outcome: 21:21 Discharge ordered by . snw 21:36 Discharged to home ambulatory. tw5 21:36 Condition: good 21:36 Discharge instructions given to patient, Instructed on discharge instructions, follow up and referral plans. Demonstrated understanding of instructions, follow-up care, medications, Prescriptions given X 1. 21:37 Patient left the ED. tw5 Signatures: Kenzie Ham FNP-C HARNESS REPAIRER-Csnw Shiloh Jules tw5 Radha Larry jj6 Nayana Meraz
--- NOTE | 2022-04-13 21:22 | EDPHYS ---
Physician Documentation [facility] Name: Latasha Crooks Jr Age: 31 yrs Sex: Male : 1990 Arrival Date: 04/13/2022 Time: 19:20 Bed 12 Private MD: ED Physician Hermilo Vargas HPI: 04/13 19:52 This 31 yrs old Black Male presents to ER via Ambulatory with complaints of snw Nausea/Vomiting/Diarrhea. 19:52 The patient presents to the emergency department with nausea, vomiting, diarrhea. snw Onset: The symptoms/episode began/occurred suddenly, 2 day(s) ago. Possible causes: sick contacts, by family. Associated signs and symptoms: The patient has no apparent associated signs or symptoms. Severity of symptoms: At their worst the symptoms were moderate in the emergency department the symptoms have improved markedly. It is unknown whether or not the patient has had similar symptoms in the past. The patient has not recently seen a physician. needs work excuse to return. Historical: - Allergies: 19:36 NKDA; tw5 - Home Meds: 19:36 None [Active]; tw5 - PMHx: 19:36 None; tw5 - PSHx: 19:36 None; tw5 - Immunization history:: Flu vaccine is not up to date. - Social history:: Smoking status: Patient reports the use of cigarette tobacco products, smokes one-half pack cigarettes per day. ROS: 19:51 Constitutional: Negative for fever, chills, and weight loss, Eyes: Negative for injury, snw pain, redness, and discharge, ENT: Negative for injury, pain, and discharge, Neck: Negative for injury, pain, and swelling, Cardiovascular: Negative for chest pain, palpitations, and edema, Respiratory: Negative for shortness of breath, cough, wheezing, and pleuritic chest pain, Back: Negative for injury and pain, : Negative for injury, bleeding, discharge, and swelling, MS/Extremity: Negative for injury and deformity, Skin: Negative for injury, rash, and discoloration, Neuro: Negative for headache, weakness, numbness, tingling, and seizure, Psych: Negative for depression, anxiety, suicide ideation, homicidal ideation, and hallucinations. 19:51 Abdomen/GI: Positive for nausea, vomiting, and diarrhea, Daughter with stomach virus last week. Pt states s/s lasted 24-36 hours and he feels better but needs work excuse. Exam: 19:50 Constitutional: This is a well developed, well nourished patient who is awake, alert, snw and in no acute distress. Head/Face: Normocephalic, atraumatic. Eyes: Pupils equal round and reactive to light, extra-ocular motions intact. Lids and lashes normal. Conjunctiva and sclera are non-icteric and not injected. Cornea within normal limits. Periorbital areas with no swelling, redness, or edema. ENT: Nares patent. No nasal discharge, no septal abnormalities noted. Tympanic membranes are normal and external auditory canals are clear. Oropharynx with no redness, swelling, or masses, exudates, or evidence of obstruction, uvula midline. Mucous membranes moist. Neck: Trachea midline, no thyromegaly or masses palpated, and no cervical lymphadenopathy. Supple, full range of motion without nuchal rigidity, or vertebral point tenderness. No Meningismus. Chest/axilla: Normal chest wall appearance and motion. Nontender with no deformity. No lesions are appreciated. Cardiovascular: tachycardic rate and rhythm with a normal S1 and S2. No gallops, murmurs, or rubs. Normal PMI, no JVD. No pulse deficits. Respiratory: Lungs have equal breath sounds bilaterally, clear to auscultation and percussion. No rales, rhonchi or wheezes noted. No increased work of breathing, no retractions or nasal flaring. Abdomen/GI: Soft, non-tender, with normal bowel sounds. No distension or tympany. No guarding or rebound. No evidence of tenderness throughout. Back: No spinal tenderness. No costovertebral tenderness. Full range of motion. Skin: Warm, dry with normal turgor. Normal color with no rashes, no lesions, and no evidence of cellulitis. MS/ Extremity: Pulses equal, no cyanosis. Neurovascular intact. Full, normal range of motion. Neuro: Awake and alert, GCS 15, oriented to person, place, time, and situation. Cranial nerves II-XII grossly intact. Motor strength 5/5 in all extremities. Sensory grossly intact. Cerebellar exam normal. Normal gait. Psych: Awake, alert, with orientation to person, place and time. Behavior, mood, and affect are within normal limits. Vital Signs: 19:33 Pulse 110; Resp 18; Temp 99.2; Pulse Ox 100% ; Weight 83.91 kg; Height 5 ft. 7 in. tw5 (170.18 cm); Pain 0/10; 19:42 BP 137 / 82; Pulse 115; zm 20:35 BP 131 / 67; Pulse 100; Resp 18; Pulse Ox 100% on R/A; tw5 21:36 Pulse 97; Resp 18; Pulse Ox 100% on R/A; tw5 19:33 Body Mass Index 28.97 (83.91 kg, 170.18 cm) tw5 MDM: 19:28 Differential diagnosis: Nonspecific abd pain, gastritis, viral gastroenteritis, snw gastroenteritis. 19:37 Patient medically screened. snw 21:22 Data reviewed: vital signs, nurses notes. Data interpreted: Pulse oximetry: on room air snw is 100 %. Interpretation: normal. Counseling: I had a detailed discussion with the patient and/or guardian regarding: the historical points, exam findings, and any diagnostic results supporting the discharge/admit diagnosis, the need for outpatient follow up, to return to the emergency department if symptoms worsen or persist or if there are any questions or concerns that arise at home. Special discussion: Based on the patient's Hx, exam, and Dx evaluation, there is no indication for emergent surgery or inpatient Tx. It is understood by the patient/guardian that if the Sx's persist or worsen they need to return immediately for re-evaluation. Based on the history and exam findings, there is no indication for further emergent testing or inpatient evaluation. I discussed with the patient/guardian the need to see the primary care provider for further evaluation of the symptoms. 21:23 Response to treatment: There is no appreciated change of the patient's symptoms at this snw time, the patient continues to show tachycardia. Awaiting: work excuse. Refusal of service: The patient/guardian displays adequate decision making capability and despite a detailed discussion of alternatives, benefits, risks, and consequences refuses: Medications. 04/13 19:24 Order name: COVID-19/FLU A+B/RSV; Complete Time: 20:36 snw Administered Medications: 20:37 Not Given (Patient Refused): NS 0.9% 1000 ml IV at 1 bolus Per protocol; 1000 mL bolus tw5 Disposition Summary: 04/13/22 21:21 Discharge Ordered Location: Home snw Problem: new snw Symptoms: have improved snw Condition: Stable snw Diagnosis - Nausea with vomiting, unspecified snw - Diarrhea, unspecified snw - Volume depletion, unspecified snw Followup: snw - With: Emergency Department - When: As needed - Reason: Worsening of condition Followup: snw - With: Private Physician - When: 2 - 3 days - Reason: Recheck today's complaints, Continuance of care, Re-evaluation by your physician Discharge Instructions: - Discharge Summary Sheet snw - Food Choices to Help Relieve Diarrhea, Adult snw - Dehydration, Adult snw - Diarrhea, Adult snw - Nausea and Vomiting, Adult snw - Rehydration, Adult snw Forms: - Work release form snw - Medication Reconciliation Form snw - Thank You Letter snw - Antibiotic Education snw - Prescription Opioid Use snw Prescriptions: - promethazine 25 mg Oral Tablet - take 1 tablet by ORAL route every 6 hours As needed; 20 tablet; Refills: 0, snw Product Selection Permitted Signatures: Dispatcher [employer] EDKenzie Shaffer, KATHLEEN-Barrera SHAFT HEADMAN-Csnw Shiloh Jules tw5
[2022-04-13 21:48] VITALS: TEMP 99.2; O2SAT 100
[2022-04-13 21:51] VITALS: BP 131/67
== END 2022-04-13 21:37 | disposition home or self-care (01) ==
LOC: ER 19:16
DX: E86.9 Volume depletion, unspecified (principal); R19.7 Diarrhea, unspecified; Z20.822 Contact with and (suspected) exposure to COVID-19
CPT/HCPCS: 0241U; 99283; J7030

== ENCOUNTER 2022-05-10 05:57 | Emergency (ER) | payer SELFPAY ==
--- OUTSIDE RECORDS SUMMARY | 2022-05-10 06:01 | XMS REPORT | Continuity of Care Document ---
:1990 Author Organization [facility] t Address [address] [place] [address] Care Team Providers Name Role Phone Pcp, [...] Drug Active [facility]ERGIE Class [facility] Social History Social Habit Start Date Stop Date Quantity Comments Source Exposure to 2021-11-10 2021-11-20 Not sure [facility] SARS-CoV-2 (event) 00:00:00 11:34:00 Medica l Branch Sex Assigned At [birth year] [facility] 00:00:00 00:00:00 Medical Branch Smoking Status Start Date Stop Date Source Tobacco smoking consumption [facility] Branch Medications This patient has no known medications. Vital Signs Vital Name Observation Time Observation Value Comments Source Systolic blood 2021-11-20 19:00:00 150 mm[Hg] Univer sity of pressure [facility] Diastolic blood 2021-11-20 19:00:00 100 [facility]Hg[facility] 2021-11-20 19:00:00 89 [facility] Respiratory rate 2021-11-20 19:00:00 18 /min [facility] Oxygen saturation in 2021-11-20 19:00:00 100 /min [facility] Arterial blood by [facility] Pulse oximetry Branch Body temperature 2021-11-20 16:35:00 36.72 Nancy [facility] Body weight 2021-11-20 16:35:00 88.451 kg [facility] Procedures Procedure Date / Time Performing Clinician Source Performed XR CHEST 1 VW 2021-11-20 17:33:12 Benjamin Rodriguez [facility] TROPONIN I 2021-11-20 17:24:00 Benjamin Rodriguez [facility] FREE T4 2021-11-20 17:24:00 Benjamin Rodriguez [facility] THYROID STIMULATING 2021-11-20 17:24:00 Benjamin Rodriguez [facility] HORMONE [facility] COMP. METABOLIC PANEL 2021-11-20 17:24:00 Benjamin Rodriguez [facility] ([id number]) [facility] CBC WITH DIFF 2021-11-20 17:24:00 Benjamin Rodriguez [facility] URINALYSIS 2021-11-20 17:24:00 Benjamin Rodriguez [facility] N-TERMINAL PRO-BNP 2021-11-20 17:24:00 Benjamin Rodriguez [facility] URINE DRUG (IMMUNOASSAY) 2021-11-20 17:24:00 Benjamin Rodriguez [facility] DRUG Medical [facility] SCREEN W/O REFLEX NOTICE OF PRIVACY 2021-11-20 16:22:18 Doctor Unassigned, No [facility] PRACTICES Name Medical Branch CONSENT/REFUSAL FOR 2021-11-20 16:21:47 Doctor Unassigned, [facility]IS [facility] TREATMENT Name [facility] Encounters Start End Encounter Admission Attending Care Care Encounter Source Date/Time Date/Time Type Type Clinicians Facility Department ID 2022-01-03 2022-01-03 Letter XAVIER Amaya [id number] Univers 00:00:00 00:00:00 (Out) Gary ESCOBEDO [id number] y [facility] [id number] Michel as [id number] [facility] 043 Branch 2021-11-20 2021-11-20 Emergency X JENNIFER [facility] ERT [id number] Univers 11:35:00 14:22:00 BENJAMIN itkanu [facility] 2021-11-20 2021-11-20 [facility] [id number] Univers 11:35:00 14:22:00 Benjamin CRAMER [id number] i ty [facility] [id number] [facility] [id number] [address] Results Test Description Test Time Test Comments Results Result Comments Source THYROID STIMULATING HORMONE 2021-11-20 18:49:18 Test Item Value Reference Range Interpretation Comme nts TSH (test code = 5619067609) See_Comment [Automated message] The system which generated this result transmitted ref erence range: 0.45 - 4.70 mIU/L. T he reference range was not used to interpret this result as palma l/abnormal. Lab Interpretation (test code = Normal 68513-0) [id number] 18:35:56 Test Item Value Reference Range Interpretation Comments FREE T4 (test code = See_Comment [Autom ated message] [id number]) The system [employer] generated this result transmitted ref erence range: 0.78 - 2 .20 ng/dL:. The ref erence range was not u sed to interpret this result as normal/abnor mal. Lab Interpretation (test Normal code = 74534-7) [facility] [id number] 18:30:54 Test Item Value Reference Interpretation Comments Range TROPONIN I (test 0.019 ng/mL See_Comment [Automated code = 7221097998) message] The system which generated this result [...] biotin. Lab Interpretation Normal (test code = 19780-6) [facility] [id number] 18:27:55 Test Item Value Reference Range Interpretation Comments NT-proBNP (test code 64 pg/mL See_Comment [Autom ated = [id number]) message] The system which generated this result transmitted reference range : <=125. The reference range was not used to interpret this result as normal/abnormal . CYNTHIA (test code = CYNTHIA) Biotin has been reported to cause a negative bias, interpret results relative to patient's use of biotin. Lab Interpretation Normal (test code = 31676-7) [facility] ([id number])2021-11-20 18:17:57 Test Item Value Reference Range Interpretation Comments NA (test code = 141 mmol/L 135-145 9887813358) K (test code = 4.2 mmol/L 3.5-5 3764271687) CL (test code = 105 mmol/L 98-108 4350046296) CO2 TOTAL (test code = 26 mmol/L 23-31 9270276051) AGAP (test code = 2-16 5710482726) BUN (test code = 7 mg/dL 7-23 6866278666) GLUCOSE (test code = 69 mg/dL 70-110 L 2828922613) CREATININE (test code = 1.07 mg/dL 0.6-1.25 5166104307) TOTAL BILI (test code = 0.5 mg/dL 0.1-1.7 5613436333) CALCIUM (test code = 9.3 mg/dL 8.6-10.6 3965781283) T PROTEIN (test code = 7.3 g/dL 6.3-8.2 6318134868) ALBUMIN (test code = 4.7 g/dL 3.5-5 5701070064) ALK PHOS (test code = 69 U/L 34-122 3603723815) ALTv (test code = 22 U/L 5-50 1742-6) AST(SGOT) (test code = 25 U/L 13-40 0801077484) eGFR (test code = mL/min/1.73m2 8595547281) CYNTHIA (test code = CYNTHIA) Association of [...] tests). Lab Interpretation Abnormal (test code = 23643-4) [facility] WITH [id number] 18:11:54 Test Item Value Reference Range Interpretation Comments WBC (test code = See_Comment [Automated 1401-2) message] The sy stem which generated this result transmitted reference range : 4.20 - 10.70 10*3/?L. The reference range was not used to interpret this result as normal/abnormal . RBC (test code = See_Comment [Automated 914-1) message] The sy stem which generated this [...] RDW-SD (test code = 44.1 fL 38.5-51.6 97798-5) RDW-CV (test code = 13.4 % 12.1-15.4 788-0) PLT (test code = See_Comment [Automated 777-3) message] The sy stem which generated this result transmitted reference range : 150 - 328 10*3/ ?L. The reference r aldo was not used to interpret this result as normal/abnormal . MPV (test code = 10.1 fL 9.8-13 74235-6) NRBC/100 WBC (test See_Comment [Automat ed code = 9157407052) message] The system which generated this result transmitted reference range : 0.0 - 10.0 /100 WBCs. The refer ence range was not u sed to interpret th is result as normal/abnormal . NRBC x10^3 (test code See_Comment [Auto mated = 8793864822) message] The s ystem which generated this result transmitted reference range : 10*3/?L. The reference range was not used to interpret this result as normal/abnormal . GRAN MAT (NEUT) % 48.4 % (test code = 770-8) IMM GRAN % (test code 0.50 % = 3497664744) LYMPH % (test code = 35.6 % 736-9) MONO % (test code = 14.1 % 5905-5) EOS % (test code = 0.9 % 713-8) BASO % (test code = 0.5 % 706-2) GRAN MAT x10^3(ANC) 4.11 10*3/uL 1.99-6.95 (test code = 8336884801) IMM GRAN x10^3 (test 0.04 10*3/uL 0-0.06 code = 8729858302) LYMPH x10^3 (test code 3.03 10*3/uL 1.09-3.23 = 731-0) MONO x10^3 (test code 1.20 10*3/uL 0.36-1.02 H = 742-7) EOS x10^3 (test code = 0.08 10*3/uL 0.06-0.53 711-2) BASO x10^3 (test code 0.04 10*3/uL 0.01-0.09 = 704-7) Lab Interpretation Abnormal (test code = 97544-6) [facility]"
[2022-05-10] MEDS ORDERED: KETOROLAC 30 MG/ML INJ ONE (06:22)
--- NOTE | 2022-05-10 06:23 | EDPHYS ---
Physician Documentation [facility] Name: Latasha Crooks Jr Age: 31 yrs Sex: Male : 1990 Arrival Date: 05/10/2022 Time: 05:59 Bed 4 Private MD: ED Physician Brijesh Griffin HPI: 05/10 06:12 This 31 yrs old Black Male presents to ER via Ambulatory with complaints of Chest Pain bs3 > 30 y/o. 06:12 31yo m no pmh, +smoking hx presents with cp for the last week. It feels like a muscle bs3 on the left side of his chest. Last night it started at approximately 8pm at rest, it is non exertional. No associated shortness of breath, nausea, vomiting or sweating. Not ripping or tearing, he hasn't taken anything for it. He was concerned this morning because he knows multiple people his age who have of an UT and therefore came in for evaluation. . Historical: - Allergies: 06:10 NKDA; ll3 - Home Meds: 06:10 None [Active]; ll3 - PMHx: 06:10 Hypertensive disorder; ll3 - Immunization history:: Client reports having NOT received the Covid vaccine. - Social history:: Smoking status: Patient reports the use of cigarette tobacco products, smokes one-half pack cigarettes per day. ROS: 06:12 Constitutional: Negative for fever, chills bs3 06:12 All other systems are negative. Exam: 06:12 Constitutional: This is a well developed, well nourished patient who is awake, alert, bs3 and in no acute distress. Head/Face: Normocephalic, atraumatic. Eyes: Pupils equal round and reactive to light, extra-ocular motions intact. Lids and lashes normal. Neck: Trachea midline, no thyromegaly, no neck stiffness Chest/axilla: Normal chest wall appearance and motion. Nontender with no deformity. No lesions are appreciated. Cardiovascular: Regular rate and rhythm with a normal S1 and S2. symmetric pulses in upper extremities Respiratory: Lungs have equal breath sounds bilaterally, clear to auscultation, no respiratory distress MS/ Extremity: Pulses equal, no cyanosis. Neurovascular intact. Full, normal range of motion. Neuro: Awake and alert, GCS 15, oriented to person, place, time, and situation. Cranial nerves II-XII grossly intact. Motor strength 5/5 in all extremities. Sensory grossly intact. Psych: Awake, alert, with orientation to person, place and time. Behavior, mood, and affect are within normal limits. 06:[address] elevation or depression qtc 425 as read by myself. bs3 Vital Signs: 06:08 BP 140 / 108; Pulse 92; Resp 18; Temp 98.1(O); Pulse Ox 100% on R/A; Weight 86.18 kg ll3 (R); Height 5 ft. 7 in. (170.18 cm) (R); Pain 5/10; 06:08 Body Mass Index 29.76 (86.18 kg, 170.18 cm) ll3 MDM: 06:05 Patient medically screened. bs3 06:12 Differential diagnosis: there is a broad differential including anxiety, msk pain, cad, bs3 acs, pe, dissection, gastritis, pneumothorax, pt hypertensive here, but denies pmh of htn, his ecg is reassuring, given symptoms since 8pm last night, will r/o acs with 1 trop, perc negative, doubt dissection given hx/pe and no risk factors, will r/o pneumothorax and tx pain. HEART Score: History: Slightly Suspicious (0), ECG: Normal (0), Age: < or = 45 years (0), Risk Factors: 1 or 2 risk factors (1), [Hypertension] [Active Smoker]. 06:12 Data reviewed: vital signs, nurses notes, EKG. Care significantly affected by the bs3 following Social Determinants of Health: Poor access to healthcare and/or lack of insurance. 06:19 ED course: of not pt denied pmh to myself, but endorsed htn to rn, advised f/u with a bs3 primary care doctor for treatment, pt counceled on smoking cessation. . 06:26 Independent interpretation of the following test(s) in the Emergency Department X-Ray: bs3 My interpretation is no acute cardiopulm disease. 07:03 ED course: labs notable for slightly elevated creatine, advised f/u with pcp for bs3 further workup. Return prec given. 05/10 06:12 Order name: Basic Metabolic Panel; Complete Time: 06:51 bs3 05/10 06:12 Order name: CBC with Diff; Complete Time: 06:51 bs3 05/10 06:12 Order name: Troponin HS; Complete Time: 06:51 bs3 05/10 06:12 Order name: XRAY Chest (1 view) bs3 05/10 06:12 Order name: EKG; Complete Time: 06:12 bs3 05/10 06:12 Order name: Cardiac monitoring; Complete Time: 06:15 bs3 05/10 06:12 Order name: EKG - Nurse/Tech; Complete Time: 06:15 bs3 05/10 06:12 Order name: IV Saline Lock; Complete Time: 06:15 bs3 05/10 06:12 Order name: Labs collected and sent; Complete Time: 06:15 bs3 05/10 06:12 Order name: O2 Per Protocol; Complete Time: 06:15 bs3 05/10 06:12 Order name: O2 Sat Monitoring; Complete Time: 06:15 bs3 Administered Medications: 06:22 Drug: Ketorolac 15 mg Route: IVP; Site: right antecubital; ll3 Disposition Summary: 05/10/22 07:05 Discharge Ordered Location: Home(05/10/22 07:05) bs3 Problem: new(05/10/22 07:05) bs3 Symptoms: have improved(05/10/22 07:05) bs3 Condition: Stable(05/10/22 07:05) bs3 Diagnosis - Chest pain, unspecified(05/10/22 07:05) bs3 Followup: bs3 - With: Private Physician - When: 2 - 3 days - Reason: Re-evaluation by your physician Followup: bs3 - With: - When: 2 - 3 days - Reason: Recheck today's complaints Discharge Instructions: - Discharge Summary Sheet bs3 - Nonspecific Chest Pain, Adult bs3 Forms: - Medication Reconciliation Form bs3 - Thank You Letter bs3 - Work release form eb - Antibiotic Education bs3 - Prescription Opioid Use bs3 Prescriptions: - amlodipine - take 5 milligram by ORAL route once daily; 20 tablet; Refills: 0, Product bs3 Selection Permitted Signatures: Dispatcher [employer] Cassie Arguello RN RN ll3 Brijesh Griffin MD MD bs3 Corrections: (The following items were deleted from the chart) 06:24 06:22 Home bs3 bs3 06:24 06:22 new bs3 bs3 06:22 have improved bs3 bs3 06:22 Stable bs3 bs3 06:22 Chest pain, unspecified bs3 bs3
--- NOTE | 2022-05-10 06:23 | ER ---
Nurse's Notes [facility] Name: Latasha Crooks Jr Age: 31 yrs Sex: Male : 1990 Arrival Date: 05/10/2022 Time: 05:59 Bed 4 Private MD: Diagnosis: Chest pain, unspecified Presentation: 05/10 06:08 Chief complaint: Patient states: C/o chest pain that has been off and on for past week, ll3 states woke up with a bloody nose. Coronavirus screen: Vaccine status: Patient reports being unvaccinated. At this time, the client does not indicate any symptoms associated with coronavirus-19. Ebola Screen: No symptoms or risks identified at this time. Initial Sepsis Screen: Does the patient meet any 2 criteria? No. Patient's initial sepsis screen is negative. Does the patient have a suspected source of infection? No. Patient's initial sepsis screen is negative. Risk Assessment: Do you want to hurt yourself or someone else? Patient reports no desire to harm self or others. Onset of symptoms was May 03, 2022. 06:08 Method Of Arrival: Ambulatory ll3 06:08 Acuity: AMARA 2 ll3 Triage Assessment: 06:10 General: Appears uncomfortable, Behavior is cooperative, crying. Pain: Complains of ll3 pain in anterior aspect of left upper chest Pain radiates to left axilla and left leg Pain currently is 5 out of 10 on a pain scale. at worst was 8 out of 10 on a pain scale. Quality of pain is described as pressure, Pain began 1 week ago. EENT: Reports bloody nose. Neuro: Level of Consciousness is awake, alert, obeys commands, Oriented to person, place, time, situation. Cardiovascular: Patient's skin is warm and dry. Rhythm is sinus rhythm Chest pain is described as mild, quality is pressure, is located in left anterior chest wall radiates to left arm(s) began 1 week ago episodes are intermittent. Respiratory: Respiratory effort is even, unlabored, Respiratory pattern is regular, symmetrical. Derm: Skin is pink, warm \T\ dry. Historical: - Allergies: 06:10 NKDA; ll3 - Home Meds: 06:10 None [Active]; ll3 - PMHx: 06:10 Hypertensive disorder; ll3 - Immunization history:: Client reports having NOT received the Covid vaccine. - Social history:: Smoking status: Patient reports the use of cigarette tobacco products, smokes one-half pack cigarettes per day. Screenin:13 [facility] ED Fall Risk Assessment (Adult) History of falling in the last 3 months, ll3 including since admission No falls in past 3 months (0 pts) Confusion or Disorientation No (0 pts) Intoxicated or Sedated No (0 pts) Impaired Gait No (0 pts) Mobility Assist Device Used No (0 pt) Altered Elimination No (0 pt) Score/Fall Risk Level 0 - 2 = Low Risk Oriented to surroundings, Maintained a safe environment, Educated pt \T\ family on fall prevention, incl call for assistance when getting out of bed. Abuse screen: Denies threats or abuse. Denies injuries from another. Nutritional screening: No deficits noted. Tuberculosis screening: No symptoms or risk factors identified. Assessment: 06:13 General: See triage assessment. ll3 Vital Signs: 06:08 BP 140 / 108; Pulse 92; Resp 18; Temp 98.1(O); Pulse Ox 100% on R/A; Weight 86.18 kg ll3 (R); Height 5 ft. 7 in. (170.18 cm) (R); Pain 5/10; 06:08 Body Mass Index 29.76 (86.18 kg, 170.18 cm) ll3 ED Course: 05:59 Patient arrived in ED. vc1 06:05 Brijesh Griffin MD is Attending Physician. bs3 06:10 Triage completed. ll3 06:10 Arm band placed on Patient placed in an exam room, on a stretcher, on pulse oximetry. ll3 EKG completed in triage. Results shown to MD. 06:13 Patient has correct armband on for positive identification. Placed in gown. Bed in low ll3 position. Call light in reach. Side rails up X 1. Adult w/ patient. Client placed on continuous cardiac and pulse oximetry monitoring. NIBP monitoring applied. 06:16 Inserted saline lock: 20 gauge in right antecubital area, using aseptic technique. kl Blood collected. 06:16 Basic Metabolic Panel Sent. kl 06:16 CBC with Diff Sent. kl 06:16 Troponin HS Sent. kl 06:21 Manoj Rao MD is Referral Physician. bs3 06:25 XRAY Chest (1 view) In Process Unspecified. EDMS 07:05 Manoj Rao MD is Referral Physician. bs3 07:17 No provider procedures requiring assistance completed. IV discontinued, intact, kc6 bleeding controlled, No redness/swelling at site. Pressure dressing applied. Administered Medications: 06:22 Drug: Ketorolac 15 mg Route: IVP; Site: right antecubital; ll3 Medication: 07:17 VIS not applicable for this client. kc6 Outcome: 07:05 Discharge ordered by . bs3 07:17 Discharged to home ambulatory, with family. kc6 07:17 Condition: stable 07:17 Discharge instructions given to patient, family, Instructed on discharge instructions, follow up and referral plans. medication usage, Demonstrated understanding of instructions, follow-up care, medications, Prescriptions given X 1. 07:17 Patient left the ED. kc6 Signatures: Dispatcher [employer] EDNV Candida Olvera RN RN kl Loubet, Lynsea, RN RN ll3 Danielle Quiroga RN RN vc1 Zuri Krishnamurthy RN RN kc6 Brijesh Griffin MD MD bs3
[2022-05-10 06:35] LABS: Hematocrit 46.7 % (39.6-49.0); Lymphocytes % 33.4 % (15.3-44.8); MCV 89.2 fL (80-100); MPV 7.4 fL (7.6-11.3); RBC Red Blood Cell Count 5.23 M/uL (4.33-5.43)
[2022-05-10 06:45] LABS: Potassium 3.9 mmol/L (3.5-5.1)
[2022-05-10 07:27] VITALS: BP 140/108; TEMP 98.1; O2SAT 100
--- NOTE | 2022-05-10 12:20 | RAD REPORT ---
EXAM DESCRIPTION: RAD - Chest Single View - 05/10/2022 6:23 am CLINICAL HISTORY: The patient is 31 years old and is Male; CHEST PAIN [facility] MAIN TECHNIQUE: Frontal view of the chest. COMPARISON: No relevant prior studies available. FINDINGS: LUNGS: Unremarkable. No consolidation. PLEURAL SPACE: Unremarkable. No pleural effusion. No pneumothorax. HEART: Unremarkable. No cardiomegaly. MEDIASTINUM: Unremarkable. BONES/JOINTS: Unremarkable. IMPRESSION: No acute cardiopulmonary abnormality. Electronically signed by: Amrit Ornelas MD 05/10/2022 6:32 AM TOWER SUPERVISOR Due to temporary technical issues with the PACS/Fluency reporting system, reports are being signed by the in house radiologists without review as a courtesy to insure prompt reporting. The interpreting radiologist is fully responsible for the content of the report.
--- NOTE | 2022-05-10 13:15 | EKG ---
Test Date: 2022-05-10 Test Time: 06:05:49 Print Inspector: LL MEASUREMENT RESULTS: Intervals: Rate: 88 MO: 158 QRSD: 94 QT: 352 QTc: 425 Parish: P: 57 MO: 158 QRS: 65 T: 32 INTERPRETIVE STATEMENTS: Normal sinus rhythm Normal ECG Compared to ECG 09/17/2014 21:26:06 No significant changes Electronically Signed On 05-10-22 13:14:19 SALES PROJECT COORDINATOR by Ravin Garcia
== END 2022-05-10 07:17 | disposition home or self-care (01) ==
LOC: ER 05:57
DX: R07.9 Chest pain, unspecified (principal); I10 Essential (primary) hypertension; F17.210 Nicotine dependence, cigarettes, uncomplicated
CPT/HCPCS: 36415; 71045; 80048; 84484; 85025; 93005; 96374; 99284